=== PATIENT | female | born 1965 | race Caucasian/White ===

== ENCOUNTER 2016-08-09 20:26 | Emergency (ER) | payer MEDICARE ==
[2016-08-09 19:05] LABS: ASCORBIC ACID (UR NOT ORDER) NEG (NEG); BILIRUBIN, URINE NEGATIVE (NEG); KETONE, URINE NEGATIVE (NEG); LEUKOCYTE ESTERASE(NOT OR TRACE (NEG); NITRITE (URINE) NEG (NEG); WBC (NOT ORDERED) (RFLEX) 6 (0-5)
[~2016-08-09 20:26] MED LIST: D100 PO; EFFEX75 PO; ESTRADIOL0.05 MG PO; GOODY'S EX-STR1 EAC1 PO; KEPPRA750 MG PO; LEVOTHYROXIN50 MCG PO; LEVOXYL100 MCG PO; LORTAB10 PO; NORCO1 TAB PO; PRILO PO; SEROQUEL1C PO; TRAZODONE150 MG PO; TYLENOL ARTH650 MG PO; VALIUM10 MG PO; ZANTAC150 MG PO
== END 2016-08-09 20:36 | disposition left against medical advice (07) ==
LOC: ER 20:26
PROVIDERS: Emergency Medicine
DX: R10.30 Lower abdominal pain, unspecified (principal); R56.9 Unspecified convulsions; R51 Headache; F17.200 Nicotine dependence, unspecified, uncomplicated; Z87.442 Personal history of urinary calculi; Z90.710 Acquired absence of both cervix and uterus; Z85.72 Personal history of non-Hodgkin lymphomas; Z88.5 Allergy status to narcotic agent; Z88.8 Allergy status to other drugs, medicaments and biological substances; Z79.899 Other long term (current) drug therapy
CPT/HCPCS: 80048; 80185; 81001; 83735; 84484; 85025; 85610; 85730; 93005; 99285